=== PATIENT | female | born 1995 | race Caucasian/White ===

== ENCOUNTER 2016-08-30 16:24 | Emergency (ER) | payer OTHER ==
[~2016-08-30] VITALS: Ht 152.4 cm; Wt 59.0 kg
[2016-08-30 16:44] VITALS: TEMP 37.1; Ht 152.4 cm; Wt 59.0 kg
[2016-08-30] MEDS ORDERED: KETOROLAC TROMETHAMINE 30 MG/ML VIAL IV STA ×2 (17:41→17:51)
[2016-08-30] MEDS ORDERED: SODIUM CHLORIDE 0.9% 1000ML 1,000 ML IV STA (17:41)
[2016-08-30] MEDS ORDERED: ONDANSETRON INJ 2 MG/ML 2 ML VIAL IV STA (17:41)
[2016-08-30] MEDS ORDERED: OPTIRAY 320 IV PRN ×2 (17:45)
[2016-08-30] MEDS ORDERED: HYDROmorphone INJ 1 MG/ML SYR IV STA (17:51)
[2016-08-30 17:58] LABS: URINE APPEARANCE CLEAR (CLEAR); URINE BILIRUBIN NEG (NEG); URINE COLOR YELLOW; URINE NITRITE NEG (NEG); URINE SPECIFIC GRAVITY 1.005 (1.000-1.030); UROBILINOGEN NEG (NEG); ZZUR CULT IF INDIC CLEAN CATCH NO
[2016-08-30 18:00] LABS: MANUAL MICROSCOPIC REQUIRED? NO; REVIEW REQ? NO
--- NOTE | 2016-08-30 18:13 | EMERGENCY ROOM VISIT NOTE ---
History Report prepared by Aleena: Linda Russo Under the Supervision of: Dr. Oliverio Chandler M.D. First contact with patient: 17:35 Chief Complaint: ABDOMINAL PAIN Stated Complaint: ABDOMINAL PAIN/FEVER Nursing Triage Summary: Pt reports abdominal pain x2 weeks, got worse today rated 7/10, sometimes going to 10/10. Pt reports IUD placement 2 weeks ago and was started on doxy. Pain has gotten increasingly worse. History of Present Illness The patient is a 20 year old female who presents to the Emergency Room with complaints of worsening abdominal pain for the past 2 weeks. She describes her pain as a severe cramping in her lower abdomen and rates her discomfort as a 10/ 10 in severity.The patient states that she had an IUD placed 2 months ago and reports that she has been having problems since. The patient was told to expect some pain and irregular periods, but she states that her pain has become too severe. She was prescribed doxycycline by her associate theatre professor last Friday for "an angry looking cervix", which the patient reports finishing. She reports that she is experiencing a low subjective fever and nausea. She states that she initially experienced decreased appetite after placement of her IUD which has since resolved. Source of History: patient Onset: approximately 2 weeks ago Position: abdomen Symptom Intensity: 10/10 Quality: cramping Timing: worsening Associated Symptoms: + fevers, + nausea Review of Systems See HPI for pertinent positives & negatives. A total of 10 systems reviewed and were otherwise negative. Past Medical & Surgical Social History Problems: (1) IUD (intrauterine device) in place Family History FH: cancer FH: heart disease FH: hypertension Social History Smoking Status: Never Smoker Smokeless Tobacco Use: No Alcohol Use: occasionally Drug Use: none Marital Status: in relationship Housing Status: lives with family (brother) Occupation Status: employed Current/Historical Medications No Active Prescriptions or Reported Meds Allergies Coded Allergies: No Known Allergies (Unverified , 08/30/16) Physical Exam Vital Signs Date Time Temp Pulse Resp B/P Pulse Ox O2 Delivery O2 Flow Rate FiO2 08/30/16 21:14 82 18 125/78 97 Room Air 08/30/16 19:26 91 16 101/74 99 Room Air 08/30/16 17:33 113 16 138/87 97 Room Air 08/30/16 16:44 37.1 122 16 133/77 100 Room Air Physical Exam CONSTITUTIONAL: The patient appears to be in moderate painful distress. HEENT: No icterus, moist mucous membranes NECK: No meningismus, trachea is midline. CARDIOVASCULAR: Regular rate, normal perfusion RESPIRATORY: Unlabored breathing. Clear to auscultation. GASTROINTESTINAL: Non-tender GENITOURINARY: Moderate suprapubic tenderness. MUSCULOSKELETAL: Full range of motion NEUROLOGIC: No acute gross focal deficits. PSYCHIATRIC: Normal affect SKIN: Normal for ethnicity. Medical Decision & Procedures ER Provider Diagnostic Interpretation: Radiology results as stated below per my review and radiologist interpretation. ABDOMEN AND PELVIS CT WITH IV AND ORAL CONTRAST IMPRESSION: No acute process Electronically signed by: Irineo Sutton M.D. 08/30/2016 8:28 PM Laboratory Results 08/30/16 18:05 Red Blood Count 5.06, Mean Corpuscular Volume 80.0, Mean Corpuscular Hemoglobin 26.7, Mean Corpuscular Hemoglobin Concent 33.3, Mean Platelet Volume 10.3, Neutrophils (%) (Auto) 67.0, Lymphocytes (%) (Auto) 13.2, Monocytes (%) (Auto) 16.1, Eosinophils (%) (Auto) 2.7, Basophils (%) (Auto) 0.8, Neutrophils # (Auto ) 3.49, Lymphocytes # (Auto) 0.69, Monocytes # (Auto) 0.84, Eosinophils # (Auto ) 0.14, Basophils # (Auto) 0.04 08/30/16 18:05 Test 08/30/16 17:36 08/30/16 18:05 Urine Color YELLOW Urine Appearance CLEAR (CLEAR) Urine pH 7.0 (4.5-7.5) Urine Specific Mclean 1.005 (1.000-1.030) Urine Protein NEG (NEG) Urine Glucose (UA) NEG (NEG) Urine Ketones NEG (NEG) Urine Occult Blood TRACE (NEG) Urine Nitrite NEG (NEG) Urine Bilirubin NEG (NEG) Urine Urobilinogen NEG (NEG) Urine Leukocyte Esterase NEG (NEG) Urine WBC (Auto) 0 /hpf (0-5) Urine RBC (Auto) 0-4 /hpf (0-4) Urine Hyaline Casts (Auto) 0 /lpf (0-5) Urine Epithelial Cells (Auto) 5-10 /lpf (0-5) Urine Bacteria (Auto) NEG (NEG) White Blood Count 5.21 K/uL (4.8-10.8) Red Blood Count 5.06 M/uL (4.2-5.4) Hemoglobin 13.5 g/dL (12.0-16.0) Hematocrit 40.5 % (37-47) Mean Corpuscular Volume 80.0 fL (80-100) Mean Corpuscular Hemoglobin 26.7 pg (25-34) Mean Corpuscular Hemoglobin Concent 33.3 g/dl (32-36) Platelet Count 224 K/uL (130-400) Mean Platelet Volume 10.3 fL (7.4-10.4) Neutrophils (%) (Auto) 67.0 % Lymphocytes (%) (Auto) 13.2 % Monocytes (%) (Auto) 16.1 % Eosinophils (%) (Auto) 2.7 % Basophils (%) (Auto) 0.8 % Neutrophils # (Auto) 3.49 K/uL (1.4-6.5) Lymphocytes # (Auto) 0.69 K/uL (1.2-3.4) Monocytes # (Auto) 0.84 K/uL (0.11-0.59) Eosinophils # (Auto) 0.14 K/uL (0-0.5) Basophils # (Auto) 0.04 K/uL (0-0.2) RDW Standard Deviation 39.1 fL (36.4-46.3) RDW Coefficient of Variation 13.5 % (11.5-14.5) Immature Granulocyte % (Auto) 0.2 % Immature Granulocyte # (Auto) 0.01 K/uL (0.00-0.02) Anion Gap 11.0 mmol/L (3-11) Est Creatinine Clear Calc Drug Dose 105.2 ml/min Estimated GFR () 144.9 Estimated GFR (Non- 125.0 BUN/Creatinine Ratio 12.7 (10-20) Calcium Level 9.2 mg/dl (8.5-10.1) Total Bilirubin 0.3 mg/dl (0.2-1) Direct Bilirubin < 0.1 mg/dl (0-0.2) Aspartate Amino Transf (AST/SGOT) 12 U/L (15-37) Alanine Aminotransferase (ALT/SGPT) 17 U/L (12-78) Alkaline Phosphatase 99 U/L (45-117) Total Protein 8.3 gm/dl (6.4-8.2) Albumin 4.6 gm/dl (3.4-5.0) Lipase 141 U/L (73-393) Human Chorionic Gonadotropin, Qual NEG (NEG) Labs reviewed by ED physician. Medications Administered Medications (Trade) Dose Ordered Sig/Romeo Route Start Time Stop Time Status Last Admin Dose Admin Sodium Chloride (Nss 1000ml) 1,000 ml @ 0 mls/hr Q0M STAT IV 08/30/16 17:41 08/30/16 17:44 DC 08/30/16 18:10 0 MLS/HR Ketorolac Tromethamine (Toradol Inj) 30 mg NOW STAT IV 08/30/16 17:41 08/30/16 17:44 DC 08/30/16 18:11 30 MG Ondansetron HCl (Zofran Inj) 4 mg NOW STAT IV 08/30/16 17:41 08/30/16 17:44 DC 08/30/16 18:11 4 MG ED Course 1741 Zofran 4 mg IV, Toradol 30 mg IV, NSS 1000 ml @ 0 mls/hr IV 1747: Past medical records reviewed. The patient was evaluated in room C8. A complete history and physical examination was performed. 2109: I reevaluated the patient. She is feeling well and resting comfortably. I discussed her results and discharge instructions and she verbalized complete understanding and agreement. Medical Decision Prior records/ancillary studies reviewed. Triage Nursing notes reviewed. The patient's history was concerning for abdominal pain. Differential diagnosis: Etiologies such as ovarian cyst, ovarian abscess, and appendicitis were entertained. 20-year-old presents into the emergency room for evaluation of mild to moderate waxing and waning lower abdominal pain after IUD placement and on antibiotics after evaluation with her associate theatre professor. She. Mild distress although had mild to moderate lower abdominal tenderness and therefore a CAT scan was ordered and subsequently negative for acute disease. She was advised to continue her antibiotics and follow up with the associate theatre professor regarding long-term management of the IUD any potential complications. She appeared comfortable time of discharge at 9:15 PM and declined prescription analgesia. Impression Primary Impression: Abdominal pain Scribe Attestation The scribe's documentation has been prepared under my direction and personally reviewed by me in its entirety. I confirm that the note above accurately reflects all work, treatment, procedures, and medical decision making performed by me. Departure Information Dispostion Home / Self-Care Prescriptions No Active Prescriptions or Reported Meds Referrals No Doctor, Assigned (PCP) Patient Instructions Abdominal Pain - [facility], My [facility]
[2016-08-30 18:16] LABS: BASO % 0.8 %; BASO ABS # 0.04 K/uL (0-0.2); COMPLETE YES; EOS % 2.7 %; HEMATOCRIT 40.5 % (37-47); IG% 0.2 %; LYMPH % 13.2 %; LYMPH ABS # 0.69 K/uL (1.2-3.4); MEAN CORPUSCULAR HEMOGLOBIN 26.7 pg (25-34); MEAN CORPUSCULAR HGB CONC 33.3 g/dl (32-36); MEAN PLATELET VOLUME 10.3 fL (7.4-10.4); MONO % 16.1 %; PLATELET COUNT 224 K/uL (130-400); RED BLOOD COUNT 5.06 M/uL (4.2-5.4); WHITE BLOOD COUNT 5.21 K/uL (4.8-10.8)
[2016-08-30 18:33] LABS: PREG INTERNAL NEGATIVE QC NEG CLEAR BACKGROUND; PREG INTERNAL POSITIVE QC POS CONTROL LINE
[2016-08-30 18:34] LABS: ALT/SGPT 17 U/L (12-78); AST/SGOT 12 U/L (15-37); BLOOD UREA NITROGEN 9 mg/dl (7-18); BUN/CREATININE RATIO 12.7 (10-20); CALCIUM 9.2 mg/dl (8.5-10.1); CARBON DIOXIDE 25 mmol/L (21-32); CHLORIDE 105 mmol/L (98-107); CREATININE 0.68 mg/dl (0.60-1.20); GLUCOSE 83 mg/dl (70-99); POTASSIUM 3.5 mmol/L (3.5-5.1); SODIUM 141 mmol/L (136-145)
[2016-08-30 18:37] LABS: ALKALINE PHOSPHATASE 99 U/L (45-117)
--- NOTE | 2016-08-30 20:29 | DIAGNOSTIC IMAGING REPORT ---
ABDOMEN AND PELVIS CT WITH IV AND ORAL CONTRAST CT DOSE: 292.66 mGy.cm HISTORY: Pain abd pain TECHNIQUE: Multiaxial CT images of the abdomen and pelvis were performed following the use of intravenous and oral contrast. COMPARISON STUDY: None. FINDINGS: The lung bases are clear. The liver, spleen, gallbladder, pancreas, kidneys, and adrenal glands are within normal limits. No bowel wall thickening or obstruction. The pelvic organs are unremarkable. No suspicious lytic or blastic osseous lesions. The appendix is not well seen although a significant pericecal or right lower quadrant inflammatory process is not appreciated. An intrauterine device appears to be in good position IMPRESSION: No acute process Electronically signed by: Irineo Sutton M.D. 08/30/2016 8:28 PM Dictated Date/Time: 08/30/2016 8:21 PM
[2016-08-30 21:14] VITALS: BP 125/78; PULSE 82; O2SAT 97
== END 2016-08-30 21:16 | disposition home or self-care (01) ==
LOC: C.EDB 16:25 → C.EDC 21:16
DX: R10.30 Lower abdominal pain, unspecified (principal); Z30.431 Encounter for routine checking of intrauterine contraceptive device; Z80.9 Family history of malignant neoplasm, unspecified; Z82.49 Family history of ischemic heart disease and other diseases of the circulatory system